=== PATIENT | female | born 1950 | race Caucasian/White ===

== ENCOUNTER → 2022-07-02 | Outpatient (CLI) | payer MEDICARE, OTHER ==
[~2022-07-02] MED LIST: ATOR10TA69 PO; OXYB10TA30 PO; SERT-439 PO; trazadone PO
== END | disposition home or self-care (01) ==
LOC: RAH 07:38
PROVIDERS: ATTEND Nurse Practitioner Family
DX: R42 Dizziness and giddiness (principal); R41.3 Other amnesia
CPT/HCPCS: 70551

== ENCOUNTER 2024-07-27 10:06 | Emergency (ER) | payer MEDICARE ==
[~2024-07-27] VITALS: Ht 160 cm; Wt 76.2 kg
[~2024-07-27 10:06] MED LIST changes: +AMOX1TAB16 PO; +APIX5TAB PO; +BUDE3CAP10 PO; +DONE10TA43 PO; +FURO20TA4 PO; +LORA-868 PO; +LOSA-418 PO; +MAGN400T53 PO; +METO25 PO; +NITR0.4T50 SL; +POTA-364 PO; -SERT-439 PO; +SERT-440 PO; +TRAM50TA4 PO
[2024-07-27 10:11] VITALS: BP 132/74; PULSE 62; RESP 18; TEMP 98
--- NOTE | 2024-07-27 10:38 | ERN ---
ED Note History of Present Illness Stated Complaint: FALL Chief Complaint: Trauma Activation Time Seen by : 10:11 Time Seen by Midlevel: 10:11 Dictation: 74-year-old female with a history of AFib, presents to the ED for evaluation after fall that occurred three days ago. Patient is currently on Eliquis patient presenting bruising around the neck area and has a hematoma to head. Patient is a frequent drinker and was drinking that day prior to falling. Denies patient changes, dizziness at this time. Patient has been ambulatory since the fall. No chest pain, lower extremity pain or abdominal pain. Allergies: Coded Allergies: morphine (Unverified Allergy, Intermediate, NAUSEA/VOMITING, 08/31/23) PATIENT VERIFIED CAUSES NAUSEA AND VOMITTING. Home Meds Active Scripts Amoxicillin/Potassium Clav (Amox Tr-K Clv 875-125 mg Tab) 875 Mg-125 Mg Tablet, 1 TAB PO BID for 7 Days, #14 TAB 0 Refills Prov:JANICE SCOTT MD 07/03/24 Nitroglycerin (Nitroglycerin) 0.4 Mg Tab.subl, 1 TAB SL AD for chest pain, #25 TAB 1 Refill 1st sign of attack; may repeat every 5 mins; if pain persists after 3 in 15 min, medical attention is recommended Prov:JANICE SCOTT MD 07/03/24 Magnesium Oxide (Magnesium Oxide) 400 Mg Tablet, 1 TAB PO DAILY for 30 Days, #30 TAB 1 Refill Prov:JANICE SCOTT MD 07/03/24 Potassium Chloride (Potassium Chloride) 20 Meq Tablet.er, 20 MEQ PO DAILY for 30 Days, #30 TAB 1 Refill Prov:JANICE SCOTT MD 07/03/24 Furosemide (Furosemide) 20 Mg Tablet, 1 TAB PO BID for 30 Days, #60 TAB 1 Refill Prov:JANICE SCOTT MD 07/03/24 Metoprolol Tartrate (Lopressor) 25 Mg Tab, 25 MG PO Q6H6 for 30 Days, #120 TAB 1 Refill Prov:JANICE SCOTT MD 07/03/24 Losartan Potassium (Cozaar) 50 Mg Tablet, 50 MG PO BID for 30 Days, #60 TAB 1 Refill Prov:JANICE SCOTT MD 07/03/24 Apixaban (Eliquis) 5 Mg Tablet, 5 MG PO BID for 30 Days, #60 TAB 1 Refill Prov:JANICE SCOTT MD 07/03/24 Reported Medications Tramadol Hcl (Tramadol HCl) 50 Mg Tablet, 50 MG PO Q6HPRN PRN for PAIN LEVEL 6 TO 10, TAB 08/31/23 Sertraline HCl (Sertraline HCl) 100 Mg Tablet, 100 MG PO BID, TAB 08/31/23 Loratadine/Pseudoephedrine (Claritin-D 24 Hour Tablet) 10 Mg-240 Mg Tab.er.24h, 1 EACH PO DAILY, TAB 08/31/23 Donepezil HCl (Donepezil HCl) 10 Mg Tablet, 10 MG PO HS, TAB 08/31/23 Budesonide (Budesonide EC) 3 Mg Capdr...er, 3 MG PO BID 08/31/23 Oxybutynin Chloride (Oxybutynin Chloride ER) 10 Mg Tab.er.24, 10 MG PO DAILY 07/31/21 [trazadone] 50 TAB No Conflict Check, 50 MG PO HS 07/31/21 Atorvastatin Calcium (Atorvastatin Calcium) 10 Mg Tablet, 10 MG PO HS, TAB 07/31/21 Past Medical History Past Medical History: Hypertension Surgical History: Appendectomy, Hysterectomy Surgical History Other: RIGHT HIP REPLACED Social History: Smokers, Lives with family RN Note Reviewed/Agreed w/PFSH: Yes Review of System Dictation CONSTITUTIONAL: Negative except for HPI HEAD/FACE: Negative except for HPI EENT: Negative except for HPI RESPIRATORY: Negative except for HPI GASTROINTESTINAL/ABDOMINAL: Negative except for HPI GENITOURINARY: Negative except for HPI MUSCULOSKELETAL: Negative except for HPI INTEGUMENTARY: Negative except for HPI NEUROLOGICAL/PSYCH: Negative except for HPI HEMATOLOGIC/LYMPHATIC: Negative except for HPI All Systems Negative, Except as noted above. 13 point review of systems assessed and all negative except for above. Review of Systems: was completed Initial Vital Sign VS Vital Signs Date Time Temp Pulse Resp B/P (MAP) Pulse Ox O2 Delivery O2 Flow Rate FiO2 07/27/24 10:11 98.1 62 18 132/74 96 Room Air Physical Exam Dictation PHYSICAL EXAM: GENERAL: alert, awake oriented x 3. Bruising neck region right side some periorbital bruising and hematoma to the right parieto-occipital scalp region HEENT: EOMI, Sclera non icteric, moist mucosa NECK: Supple, no JVD, trachea midline LUNGS: Clear breath sounds bilaterally. No wheezes HEART: Regular rate and rhythm. Normal S1 and S2, without murmurs ABD: Abdomen soft, nontender. Bowel sounds present EXT: No clubbing or cyanosis, NEURO: Alert and oriented to person, follows commands Results (Laboratory/Radiology) Laboratory/Radiology Laboratory Tests Test 07/27/24 10:41 White Blood Count 5.2 K/uL (4.8-10.8) Red Blood Count 3.97 MIL/uL (4.00-5.50) L Hemoglobin 12.5 g/dL (12.0-16.0) Hematocrit 37.7 % (36-48) Mean Corpuscular Volume 95.0 fL (79-99) Mean Corpuscular Hemoglobin 31.5 pg (27.0-33.0) Mean Corpuscular Hemoglobin Concent 33.2 g/dL (32.0-36.0) Red Cell Distribution Width 13.3 % (11.0-15.5) Platelet Count 156 K/uL (130-400) Mean Platelet Volume 12.4 fL (7.5-10.5) H Immature Granulocyte % (Auto) 0.2 % (0-1) Neutrophils (%) (Auto) 67.1 % (40.0-77.0) Lymphocytes (%) (Auto) 20.7 % (21.0-51.0) L Monocytes (%) (Auto) 9.7 % (3.0-13.0) Eosinophils (%) (Auto) 1.5 % (0.0-8.0) Basophils (%) (Auto) 0.8 % (0.0-5.0) Neutrophils # (Auto) 3.5 K/uL (1.8-7.7) Lymphocytes # (Auto) 1.1 K/uL (1.0-4.8) Monocytes # (Auto) 0.5 K/uL (0.1-1.0) Eosinophils # (Auto) 0.08 K/uL (0.00-0.70) Basophils # (Auto) 0.04 K/uL (0.00-0.20) Absolute Immature Granulocyte (auto 0.01 K/uL (0-1) Nucleated Red Blood Cells 0.0 % (0.0-0.19) Prothrombin Time 12.4 SEC (9.6-11.6) H Prothromb Time International Ratio 1.12 (0.85-1.15) Activated Partial Thromboplast Time 27.3 SEC (26.3-35.5) Sodium Level 138 mmol/L (136-145) Potassium Level 3.3 mmol/L (3.5-5.1) L Chloride Level 101 mmol/L (101-111) Carbon Dioxide Level 30 mmol/L (21-32) Blood Urea Nitrogen 14 mg/dL (7-18) Creatinine 0.7 mg/dL (0.5-1.0) Glomerular Filtration Rate Calc 91 mL/min (>90) Random Glucose 106 mg/dL (70-105) H Total Calcium 8.6 mg/dL (8.5-10.1) Total Bilirubin 1.0 mg/dL (0.2-1.0) Aspartate Amino Transf (AST/SGOT) 19 U/L (10-37) Alanine Aminotransferase (ALT/SGPT) 31 U/L (12-78) Alkaline Phosphatase 50 U/L (50-136) Troponin I High Sensitivity 15 ng/L (4-50) Total Protein 6.6 g/dL (6.0-8.3) Albumin 3.3 g/dL (3.5-5.0) L Labs Reviewed?: Yes EKG Comment: Date: 07/27/2024 Time: 10 19 Ventricular rate: 94 [place] interval: QRS duration: 92 QT/QTc: 471 EKG interpretation: Stable atrial fibrillation, no STEMI Reviewed by ED Attending X-RAY Comment: PATIENT: RENETTA HINKLE MR#: [id number] : 1950 SEX: F AGE: 74 LOCATION: [facility] ORDER 1028 STATUS: REG ER REPORT#: [id number] SERVICE 1028 REASON: fall ORDERING PHYSICIAN: JORGITO SANCHEZ PROCEDURE: CXR1VW - CHEST 1VW Exam Type: CHEST 1VW Clinical Information: fall Comparison: None Findings: Benign calcified granuloma left mid lung. The lungs are clear of infiltrates. The heart is enlarged. Bony and soft tissue structures of the chest wall are unremarkable. IMPRESSION: Cardiomegaly. Clear lungs. DICTATED BY: IVETT BOLTON MD DATE: 07/27/24 1056 ELECTRONICALLY SIGNED BY: IVETT BOLTON MD DATE: 07/27/[address] Scan Comment: PATIENT: RENETTA HINKLE MR#: [id number] : 1950 SEX: F AGE: 74 LOCATION: [facility] ORDER 1028 STATUS: REG ER HOME REPORT#: [id number] SERVICE 1024 REASON: fall, trauma WO PER VWCIARAN ORDERING PHYSICIAN: JORGITO SANCHEZ PROCEDURE: MAXFACI WO - CT MAXILLOFACIAL W/O CONTRAST CT MAXILLOFACIAL W/O CONTRAST Indication: fall, trauma WO PER VWRB Technique: Multiple thin section axial images were performed through the face and paranasal sinuses. Coronal reconstructions were performed in soft tissue and bone windows, as well as sagittal reconstructions. CT Dose Index (CTDI): 22.11 mGy Dose Length Product (DLP): 450.8 total mGy Findings: Paranasal sinuses are unremarkable. There is no evidence of facial fracture. Visualized soft tissues are unremarkable. Visualized intracranial contents are unremarkable. Impression: No acute abnormality of the face. This study was performed using dose reduction techniques to include automated exposure control and/or adjustment of the mA and/or kV according to patient size. DICTATED BY: IVETT BOLTON MD DATE: 07/27/24 1104 ELECTRONICALLY SIGNED BY: IVETT BOLTON MD DATE: 07/27/24 110 PATIENT: RENETTA HINKLE MR#: [id number] : 1950 SEX: F AGE: 74 LOCATION: [facility] ORDER 1028 STATUS: REG ER REPORT#: [id number] SERVICE 1024 REASON: fall, trauma ORDERING PHYSICIAN: JORGITO SANCHEZ PROCEDURE: HEAD WO - CT HEAD/BRAIN W/O CONTRAST Exam Type: CT HEAD/BRAIN W/O CONTRAST Clinical Information: fall, trauma Comparison: None CT Dose Index (CTDI): 57.33 mGy Dose Length Product (DLP): 956.79 total mGy-cm Findings: The examination shows atrophy. There is low attenuation throughout the periventricular white matter locations, consistent with chronic small vessel ischemic changes. Right parieto-occipital scalp hematoma without underlying fractures. No acute intra- or extra-axial fluid collections are seen. There is no evidence of acute or chronic hemorrhage. There is no mass effect or shift of midline structures. There are no areas to suggest acute infarct. The skull windows show no significant abnormalities. IMPRESSION: 1. ATROPHY AND CHRONIC SMALL VESSEL ISCHEMIC CHANGES. This study was performed using dose reduction techniques to include automated exposure control and/or adjustment of the mA and/or kV according to patient size. DICTATED BY: IVETT BOLTON MD DATE: 07/27/241056 ELECTRONICALLY SIGNED BY: IVETT BOLTON MD DATE: 07/27/24 105 PATIENT: RENETTA HINKLE MR#: [id number] : 1950 SEX: F AGE: 74 LOCATION: [facility] ORDER 1028 STATUS: REG [facility] REPORT#: [id number] SERVICE 1024 REASON: fall, trauma ORDERING PHYSICIAN: JORGITO SANCHEZ PROCEDURE: C SPIN WO - CT CERVICAL SPINE W/O CONTRAST Exam Type: CT cervical spine without contrast Clinical Information: fall, trauma Comparison: None Technique: Spiral axial images were performed from the base of the skull down to the thoracic vertebral bodies. Both sagittal and coronal reconstructions were performed. CT Dose Index (CTDI): 12.85 mGy Dose Length Product (DLP): 282.6 total Findings: There are degenerative changes. Degenerative disc disease is noted at multiple levels. There is reversal of normal cervical lordosis consistent with degeneration and spasm. There are no fractures. There is facet hypertrophy at multiple levels. IMPRESSION: Degenerative changes as noted. No acute pathology. No fractures seen. This study was performed using dose reduction techniques to include automated exposure control and/or adjustment of the mA and/or kV according to patient size. DICTATED BY: IVETT BOLTON MD DATE: 07/27/241104 ELECTRONICALLY SIGNED BY: IVETT BOLTON MD DATE: 07/27/241108 ED Course ED Course Orders Procedure Category Date Status Time Ct Head/Brain W/O CT 07/27/24 Resulted Contrast 10:24 Ct Cervical Spine W/O CT 07/27/24 Resulted Contrast 10:24 Troponin I High LAB 07/27/24 Complete Sensitivity 10:24 12 Lead Ekg Tracing- EKG 07/27/24 Complete Technical 10:24 Pt And Ptt LAB 07/27/24 Complete 10:24 Cbc With Differential LAB 07/27/24 Complete 10:24 Comprehensive LAB 07/27/24 Complete Metabolic Panel 10:24 Hydrocodone/Apap PHA 07/27/24 Complete 5/325 (Avalon 5/325mg) 10:30 Chest 1vw RAD 07/27/24 Resulted 10:28 Ct Maxillofacial W/O CT 07/27/24 Resulted Contrast 10:24 Current Medications Medications (Trade) Dose Ordered Sig/Colette Route PRN Reason Start Time Stop Time Status Last Admin Dose Admin Acetaminophen/ Hydrocodone Bitart (NORco 5/325MG) 1 tab ONCE ONCE PO 07/27/24 10:30 07/27/24 10:31 DC Vital Signs Date Time Temp Pulse Resp B/P (MAP) Pulse Ox O2 Delivery O2 Flow Rate FiO2 07/27/24 10:11 98.1 62 18 132/74 96 Room Air Medical Decision Making MDM MDM: Differential diagnosis: There are no social concerns with this patient. Prescription drug management Prescriptions will include: Medical management and examination interpretation discussions were had by ne wi th other qualified healthcare professionals as indicated for the patient's care. 74-year-old female with a history of AFib, presents to the ED for evaluation after fall that occurred three days ago. Patient is currently on Eliquis patient presenting bruising around the neck area and has a hematoma to head. Patient is a frequent drinker and was drinking that day prior to falling. Denies patient changes, dizziness at this time. Patient has been ambulatory since the fall. No chest pain, lower extremity pain or abdominal pain. Patient has a moderate sized occipital parietal scalp hematoma to the right side. Patient was alert and oriented x4. GCS 15. Her cause a advanced of be fall. Since his fall occurred three days ago patient was downgraded from a level two trauma. CT scan shows degenerative joint disease but no acute findings. CT of the head she has not acute intracranial bleed, midline shift. Does show a occipito-parietal hematoma. She was x-ray shows no acute findings. CT maxillofacial shows findings. Upon reexamination patient reports he was being better. Patient she has been taking any pain medications at home over the past three days. Patient is alert oriented four GCS 15, able to answer my questions have a conversation. Patient was smiling at bedside with been laughing, making jokes. Discussed case and my attending Dr. Grimm states that patient was stable for discharge. Return precautions discussed extensively with the patient family member. Recommended follow up PCP in 1-2 days. Patient and family member verbalized understanding, agreed with plan, and all questions were answered at this time. DX & DISP Disposition: Discharge Departure Impression: Primary Impression: Fall from ground level Additional Impressions: Hematoma of right parietal scalp, Degenerative joint disease, Atrial fibrillation, controlled Condition: Stable Additional Instructions: Please follow up with your primary care doctor in 1-2 days. Referrals: MARINA JIMENEZ (PCP) I have examined patient, & reviewed all documents, & agreed W/ the Diagnosis, and Plan JORGITO SANCHEZ Jul 27, 2024 10:38
--- NOTE | 2024-07-27 10:44 | EKG ---
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
[2024-07-27 10:49] LABS: BASOPHILS # (AUTO) 0.04 K/uL (0.00-0.20); BASOPHILS % (AUTO) 0.8 % (0.0-5.0); EOSINOPHILS # (AUTO) 0.08 K/uL (0.00-0.70); EOSINOPHILS % (AUTO) 1.5 % (0.0-8.0); HEMATOCRIT 37.7 % (36-48); IMMATURE GRANULOCYTE ABSOLUTE 0.01 K/uL (0-1); LYMPHOCYTES # (AUTO) 1.1 K/uL (1.0-4.8); LYMPHOCYTES % (AUTO) 20.7 % (21.0-51.0); MEAN CORPUSCULAR HEMOGLOBIN 31.5 pg (27.0-33.0); MEAN CORPUSCULAR HGB CONC 33.2 g/dL (32.0-36.0); MONOCYTES # (AUTO) 0.5 K/uL (0.1-1.0); MONOCYTES % (AUTO) 9.7 % (3.0-13.0); NEUTROPHILS # (AUTO) 3.5 K/uL (1.8-7.7); NEUTROPHILS % (AUTO) 67.1 % (40.0-77.0); PLATELET COUNT (AUTO) 156 K/uL (130-400); RED BLOOD CELL COUNT(AUTO) 3.97 MIL/uL (4.00-5.50); RED CELL DISTRIBUTION WIDTH 13.3 % (11.0-15.5); WHITE BLOOD COUNT (AUTO) 5.2 K/uL (4.8-10.8)
[2024-07-27 10:58] LABS: CREATININE 0.7 mg/dL (0.5-1.0); POTASSIUM 3.3 mmol/L (3.5-5.1)
[2024-07-27 10:59] LABS: INR 1.12 (0.85-1.15); PROTHROMBIN TIME 12.4 SEC (9.6-11.6)
--- NOTE | 2024-07-27 10:59 | HMCIMG ---
Exam Type: CT HEAD/BRAIN W/O CONTRAST Clinical Information: fall, trauma Comparison: None CT Dose Index (CTDI): 57.33 mGy Dose Length Product (DLP): 956.79 total mGy-cm Findings: The examination shows atrophy. There is low attenuation throughout the periventricular white matter locations, consistent with chronic small vessel ischemic changes. Right parieto-occipital scalp hematoma without underlying fractures. No acute intra- or extra-axial fluid collections are seen. There is no evidence of acute or chronic hemorrhage. There is no mass effect or shift of midline structures. There are no areas to suggest acute infarct. The skull windows show no significant abnormalities. IMPRESSION: 1. ATROPHY AND CHRONIC SMALL VESSEL ISCHEMIC CHANGES. This study was performed using dose reduction techniques to include automated exposure control and/or adjustment of the mA and/or kV according to patient size.
--- NOTE | 2024-07-27 10:59 | HMCIMG ---
Exam Type: CHEST 1VW Clinical Information: fall Comparison: None Findings: Benign calcified granuloma left mid lung. The lungs are clear of infiltrates. The heart is enlarged. Bony and soft tissue structures of the chest wall are unremarkable. IMPRESSION: Cardiomegaly. Clear lungs.
[2024-07-27 11:01] LABS: PARTIAL THROMBOPLASTIN TIME 27.3 SEC (26.3-35.5)
[2024-07-27 11:02] LABS: ALBUMIN 3.3 g/dL (3.5-5.0); TOTAL PROTEIN, SERUM 6.6 g/dL (6.0-8.3)
--- NOTE | 2024-07-27 11:07 | HMCIMG ---
CT MAXILLOFACIAL W/O CONTRAST Indication: fall, trauma WO PER VWRB Technique: Multiple thin section axial images were performed through the face and paranasal sinuses. Coronal reconstructions were performed in soft tissue and bone windows, as well as sagittal reconstructions. CT Dose Index (CTDI): 22.11 mGy Dose Length Product (DLP): 450.8 total mGy Findings: Paranasal sinuses are unremarkable. There is no evidence of facial fracture. Visualized soft tissues are unremarkable. Visualized intracranial contents are unremarkable. Impression: No acute abnormality of the face. This study was performed using dose reduction techniques to include automated exposure control and/or adjustment of the mA and/or kV according to patient size.
--- NOTE | 2024-07-27 11:09 | HMCIMG ---
Exam Type: CT cervical spine without contrast Clinical Information: fall, trauma Comparison: None Technique: Spiral axial images were performed from the base of the skull down to the thoracic vertebral bodies. Both sagittal and coronal reconstructions were performed. CT Dose Index (CTDI): 12.85 mGy Dose Length Product (DLP): 282.6 total Findings: There are degenerative changes. Degenerative disc disease is noted at multiple levels. There is reversal of normal cervical lordosis consistent with degeneration and spasm. There are no fractures. There is facet hypertrophy at multiple levels. IMPRESSION: Degenerative changes as noted. No acute pathology. No fractures seen. This study was performed using dose reduction techniques to include automated exposure control and/or adjustment of the mA and/or kV according to patient size.
[2024-07-27] MEDS: HYDROcodone/APAP 5/325 1 TAB TABLET PO ONE (11:53)
== END 2024-07-27 12:25 | disposition home or self-care (01) ==
LOC: EDH 10:06
DX: S00.03XA Contusion of scalp, initial encounter (principal); S10.93XA Contusion of unspecified part of neck, initial encounter; M47.812 Spondylosis without myelopathy or radiculopathy, cervical region; I48.91 Unspecified atrial fibrillation; Z79.01 Long term (current) use of anticoagulants; F17.200 Nicotine dependence, unspecified, uncomplicated; Z79.899 Other long term (current) drug therapy; Z88.5 Allergy status to narcotic agent; Z90.49 Acquired absence of other specified parts of digestive tract; Z90.710 Acquired absence of both cervix and uterus; W18.39XA Other fall on same level, initial encounter; Y93.89 Activity, other specified; Y92.89 Other specified places as the place of occurrence of the external cause; Y99.8 Other external cause status
CPT/HCPCS: 36415; 70450; 70486; 71045; 72125; 80053; 84484; 85025; 85610; 85730; 93005; 99285